=== PATIENT | female | born 1990 | race Caucasian/White ===

== ENCOUNTER 2022-06-14 00:18 | Emergency (ER) | payer SELFPAY ==
[2022-06-14] MEDS ORDERED: Metoprolol Tartrate 50 MG Tab PO ONE (00:26)
[2022-06-14 01:03] LABS: ESTIMATED GFR 118 mL/min (>60)
== END 2022-06-14 01:20 | disposition home or self-care (01) ==
LOC: FB.ED 00:18
DX: R00.0 Tachycardia, unspecified (principal)
CPT/HCPCS: 36415; 80048; 84484; 85025; 93005; 99285; A9270-GY

== ENCOUNTER 2023-02-07 04:33 | Emergency (ER) | payer MEDICAID ==
[2023-02-07 05:37] LABS: ESTIMATED GFR 100 mL/min (>60)
[2023-02-07 05:52] LABS: ACETAMINOPHEN < 2 ug/mL (<2)
== END 2023-02-07 06:35 | disposition home or self-care (01) ==
LOC: FB.ED 04:33
DX: R45.851 Suicidal ideations (principal); F17.210 Nicotine dependence, cigarettes, uncomplicated; Z79.899 Other long term (current) drug therapy
CPT/HCPCS: 36415; 80053; 80143; 80179; 80307; 81001; 81025; 84439; 84443; 85025; 99283; 99284